=== PATIENT | female | born 1980 | race Caucasian/White ===

== ENCOUNTER 2024-10-09 01:02 | Emergency (ER) | payer MEDICAID, SELFPAY ==
[2024-10-09 01:03] VITALS: BP 109/72; PULSE 100; RESP 16; TEMP 36.6; O2SAT 97
--- OUTSIDE RECORDS SUMMARY | 2024-10-09 01:05 | XMS_ITS | Encounter Summary ---
Author Organization [facility] Address [address] [place] [address] Care Team Providers Care Concrete Crusher Loader Operator Name Role Phone Venkat Solis MD Primary Care Provider [phone] Encounter Details Date Type Department Care Team (Late st Contact Info) Description 01/14/2008 Outpatient Historical [facility] Er, Authorized P NO ADDRESS ON FILE Pancho Anglin MD [address] [facility] [place] [address] Social History Tobacco Use Types Packs/Day Years Used Date Smoking Tobacco: Never Assessed Comments Unknown Sex and Gender Information Value Date Recorded Sex Assigned at Female 04/24/2023 11:11 PM CDT Legal Sex Female 2:50 AM WORK STATION SUPPORT SPECIALIST Gender Identity Female 04/24/2023 11:11 PM CDT Sexual Orientation Straight 04/24/2023 11 :11 PM CDT documented as of this encounter Plan of Treatment Not on file documented as of this encounter Visit Diagnoses Not on filedocumented in this encounter Additional Health Concerns Infection Onset Date Last Indicated Resolved Time R/O COVID-19 02/19/2022 02/19/2022 02/19/2022 3:34 PM CDT R/O COVID-19 10/22/2022 10/22/2022 10/22/2022 5:43 PM WORK STATION SUPPORT SPECIALIST R/O COVID-19 08/02/2023 08/02/2023 08/02/2023 4:03 AM WORK STATION SUPPORT SPECIALIST R/O Respiratory 08/02/2023 08/02/2023 08/02/2023 1 :49 AM WORK STATION SUPPORT SPECIALIST R/O GI Pathogen 08/04/2023 08/04/2023 08/04/2023 7 :15 PM WORK STATION SUPPORT SPECIALIST documented as of this encounter Care Teams Concrete Crusher Loader Operator Relationship Specialty [place] [address] [address] PCP - General Family Practice 09/16/24 09/16/24 documented as of this encounter
--- OUTSIDE RECORDS SUMMARY | 2024-10-09 01:05 | XMS_ITS | Encounter Summary ---
Author Organization [facility] Address [address] [place] [address] Care Team Providers Care Nurse Transition Name Role Phone Venkat Solis MD Primary Care Provider [phone] Reason for Visit * Reason Onset Date Comments Paperwork 05/18/2024 Alana amado Encounter Details Date Type Department Care Team (Late st Contact Info) Description 05/18/2024 Telephone [facility] Family Medicine [place] Harpreet [address] [employer] [facility] [address] [place] [address] [place] [address] [place] [facility] [address] [place] [address] Paperwork ([employer] Arred[employer] Form) Social History Tobacco Use Types Packs/Day Years Used Date Smoking Tobacco: Never Smokeless Tobacco: Never Comments:Second hand smoke e xposure Alcohol Use Standard Drinks/Week Comments Not Currently 0 (1 standard drink = 0.6 oz pur e alcohol) social Feeling Safe Answer Date Recorded Within the last year, have y ou been afraid of your partner or ex-partner? No 03/09/2020 Within the last year, have y ou been humiliated or emotionally abused in other ways by your partner or ex-partner? No 03/09/2020 Within the last year, have y ou been kicked, hit, slapped, or otherwise physically hurt by your partner or ex-partner? No 03/09/2020 Sexually Abused Not on file 03/09/2020 Feeling Safe Answer Date Recorded Are you in a relationship wi th someone who hurts you emotionally and/or physically? No 04/12/2024 Food Insecurity Answer Date Recorded Social/Environmental Concerns No concerns Transportation Needs Answer Date Record ed Social/Environmental Concerns No concerns Housing Stability Answer Date Recorded Social/Environmental Concerns No concerns Utility Needs Answer Date Recorded Social/Environmental Concerns No concerns Comments No Sex and Gender Information Value Date Recorded Sex Assigned at Female 04/24/2023 11:11 PM CDT Legal Sex Female 2:50 AM SHAREPOINT ADMIN Gender Identity Female 04/24/2023 11:11 PM CDT Sexual Orientation Straight 04/24/2023 11 :11 PM CDT Occupation Industry Job Start Date Job End Date Not on file Not on file Not on file Not on file documented as of this encounter Miscellaneous Notes * Telephone Encounter - Wandy Hernandez - 05/18/2024 1:06 PM CDT Paperwork has been scanned into patient's chart and a copy placed in Dr Mai's folder documented in this encounter Plan of Treatment Not on file documented as of this encounter Visit Diagnoses Not on filedocumented in this encounter Care Teams Nurse Transition Relationship Specialty [place] [address] [phone] PCP - General Family Practice 09/16/24 09/16/24 documented as of this encounter
--- OUTSIDE RECORDS SUMMARY | 2024-10-09 01:05 | XMS_ITS | Encounter Summary ---
Author Organization [facility] Address [address] [place] [address] Care Team Providers Care Gatekeeper Name Role Phone Venkat Solis MD Primary Care Provider [phone] Encounter Details Date Type Department Care Team (Late st Contact Info) Description 05/18/2007 Outpatient Historical [facility] [place] [place] [id number] Er, Authorized P NO ADDRESS ON FILE Broken Tooth-Uncomplic (Primary Dx) Social History Tobacco Use Types Packs/Day Years Used Date Smoking Tobacco: Never Assessed Comments Unknown Sex and Gender Information Value Date Recorded Sex Assigned at Female 04/24/2023 11:11 PM CDT Legal Sex Female 2:50 AM PHARMACEUTICAL SALES REPRESENTATIVE Gender Identity Female 04/24/2023 11:11 PM CDT Sexual Orientation Straight 04/24/2023 11 :11 PM CDT documented as of this encounter Plan of Treatment Not on file documented as of this encounter Visit Diagnoses Diagnosis Open wound of tooth (broken) (fractured) (due to trauma), without mention of complication- Primary documented in this encounter Additional Health Concerns Infection Onset Date Last Indicated Resolved Time R/O COVID-19 02/19/2022 02/19/2022 02/19/2022 3:34 PM CDT R/O COVID-19 10/22/2022 10/22/2022 10/22/2022 5:43 PM PHARMACEUTICAL SALES REPRESENTATIVE R/O COVID-19 08/02/2023 08/02/2023 08/02/2023 4:03 AM PHARMACEUTICAL SALES REPRESENTATIVE R/O Respiratory 08/02/2023 08/02/2023 08/02/2023 1 :49 AM PHARMACEUTICAL SALES REPRESENTATIVE R/O GI Pathogen 08/04/2023 08/04/2023 08/04/2023 7 :15 PM PHARMACEUTICAL SALES REPRESENTATIVE documented as of this encounter Care Teams Gatekeeper Relationship Specialty [place] [address] [phone] PCP - General Family Practice 09/16/24 09/16/24 documented as of this encounter
--- OUTSIDE RECORDS SUMMARY | 2024-10-09 01:05 | XMS_ITS | Encounter Summary ---
Author Organization [facility] Address [address] [place] [address] Care Team Providers Care Storeroom Supervisor Name Role Phone Venkat Solis MD Primary Care Provider [phone] Reason for Visit * Reason Onset Date Comments Paperwork 08/27/2024 [facility] of Socia l Services for Medical Referral of Restricted Participant Encounter Details Date Type Department Care Team (Late st Contact Info) Description 08/27/2024 Telephone [facility] Medicine [facility] [address] [id number] [employer] [facility] [address] [place] [address] [place] [address] [place] [address] Paperwork ([facility] 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 No 08/26/2024 Food Insecurity Answer Date Recorded Social/Environmental Concerns No concerns Transportation Needs Answer Date Record ed Social/Environmental Concerns No concerns Housing Stability Answer Date Recorded Social/Environmental Concerns No concerns Utility Needs Answer Date Recorded Social/Environmental Concerns No concerns Comments No Sex and Gender Information Value Date Recorded Sex Assigned at Female 04/24/2023 11:11 PM CDT Legal Sex Female 2:50 AM BENCH MANAGER Gender Identity Female 04/24/2023 11:11 PM CDT Sexual Orientation Straight 04/24/2023 11 :11 PM CDT Occupation Industry Job Start Date Job End Date Not on file Not on file Not on file Not on file documented as of this encounter Miscellaneous Notes * Telephone Encounter - Wandy Hernandez - 08/27/2024 10:39 AM CST Paperwork has been scanned into patient's chart and a copy placed in Dr Mai's folder H MANAGER documented in this encounter Plan of Treatment Not on file documented as of this encounter Visit Diagnoses Not on filedocumented in this encounter Care Teams Storeroom Supervisor Relationship Specialty [place] [address] [phone] PCP - General Family Practice 09/16/24 09/16/24 documented as of this encounter
--- OUTSIDE RECORDS SUMMARY | 2024-10-09 01:05 | XMS_ITS | Encounter Summary ---
Author Organization [facility] Address [address] [place] [address] Care Team Providers Care Dog Boarder Name Role Phone Venkat Solis MD Primary Care Provider Encounter Details Date Type Department Care Team (Late st Contact Info) Description 05/22/2007 Outpatient Historical [facility] Pancho Anglin MD [address] [place] [address] Emergency Department [place], [place] [id number] Er, Authorized P NO ADDRESS ON FILE Periapical Abscess without Sinus (Primary Dx) Social History Tobacco Use Types Packs/Day Years Used Date Smoking Tobacco: Never Assessed Comments Unknown Sex and Gender Information Value Date Recorded Sex Assigned at Female 04/24/2023 11:11 PM CDT Legal Sex Female 2:50 AM SHIP/REC/DOC CONTROL Gender Identity Female 04/24/2023 11:11 PM CDT Sexual Orientation Straight 04/24/2023 11 :11 PM CDT documented as of this encounter Plan of Treatment Not on file documented as of this encounter Visit Diagnoses Diagnosis Periapical abscess without sinus- Primary documented in this encounter Additional Health Concerns Infection Onset Date Last Indicated Resolved Time R/O COVID-19 02/19/2022 02/19/2022 02/19/2022 3:34 PM CDT R/O COVID-19 10/22/2022 10/22/2022 10/22/2022 5:43 PM SHIP/REC/DOC CONTROL R/O COVID-19 08/02/2023 08/02/202308/0208/02/2023 4:03 AM SHIP/REC/DOC CONTROL R/O Respiratory 08/02/2023 08/02/2023 08/02/2023 1 :49 AM SHIP/REC/DOC CONTROL R/O GI Pathogen 08/04/2023 08/04/2023 08/04/2023 7 :15 PM SHIP/REC/DOC CONTROL documented as of this encounter Care Teams Dog Boarder Relationship Specialty [place] [address] [phone] PCP - General Family Practice 09/16/24 09/16/24 documented as of this encounter
--- OUTSIDE RECORDS SUMMARY | 2024-10-09 01:05 | XMS_ITS | Continuity of Care Document ---
Author Organization [facility] Address [address] [place] [address] Phone Care Team Providers Care Pure Pak Machine Operator Name Role Phone Heidy SERNA, Henry Unavailable Unavailabl e Allergies, Adverse Reactions, Alerts Substance Reaction Status Criticality TRAMADOL HCL Active No Information KETOROLAC TROMETHAMINE Active No In formation Medications Medication Instructions Dosage Effective Dates (start - stop) Status Comments omeprazole 40 mg capsule,delayed release take 1 capsule by oral route 2 times every day before a meal 40 MG - Active Prozac 40 mg capsule take 1 capsule by o ral route every day in the morning 40 MG - Active Lamictal 200 mg tablet take 1 tablet by oral route 2 times every day 200 MG - Active Xanax 1 mg tablet take 1 tablet by ora l route 2 times every day 1 MG - Active trazodone 100 mg tablet take 1 tablet by oral route every day after meals 100 MG - Active Advance Directives Directive Yes / No Effective Date File Name No Information Encounters Encounter Description Practice Location Reason(s) For Visit Diagnoses Date Provider Providers Copied on Encounter [facility], [address], [place], [place], [id number], tel:[phone] [facility] No Information 7 Heidy Figueroa. [address], [id number], [place]. tel:[phone] [facility], [address], [place], [place], [address], [place] tel:[phone] [facility] No Information 6 Olvin Sorensen. [address] [facility], [facility] [address], [place], [place], [id number]. tel:[phone] [facility], [address], [place], [place], [id number], [place] tel:[phone] [facility] Diffuse abdominal painAbnormal CT of the abdomen 5 Olvin Sorensen. [address] [facility], [address], [place], [place], [id number]. tel:[phone] Referring Provider: Karina Woods[address], [place], [address]. tel:[phone] Family History Family Member Type Diagnosis Age At Onset No Information Payers Payer name Insurance type Covered green party ID Authoriza tion(s) MEDICAID [facility] [id number] Social History Type Description Quantity Date Captured Comments Alcohol Use Details Unknown Caffeine Use Details Unknown Tobacco Use Status No Information Smoking Status No Information Sex Female Chief Complaint And Reason For Visit No Information Reason For Referral Reason For Referral No Information History Of Present Illness Encounter Date Complaint History Of Prese nt Illness No Information Functional Status Date Functional Assessmen t No Information Instructions Date Instruction Additional Infor mation No Information Assessments Type Assessment Date No Information Patient Care Teams Name Effective Dates (start - stop) Status Members No Information
--- OUTSIDE RECORDS SUMMARY | 2024-10-09 01:05 | XMS_ITS | Encounter Summary ---
Author Organization [facility] Address [address] [place] [address] Care Team Providers Care Dry Box Tender Name Role Phone Venkat Solis MD Primary Care Provider [phone] Encounter Details Date Type Department Care Team (Late st Contact Info) Description 12/17/2001 Outpatient Historical [facility] Omar Cárdenas MD Er, Authorized P NO ADDRESS ON FILE UNS ASTHMA WOSTATUS ASTHMATICUS (Primary Dx) Social History Tobacco Use Types Packs/Day Years Used Date Smoking Tobacco: Never Assessed Comments Unknown Sex and Gender Information Value Date Recorded Sex Assigned at Female 04/24/2023 11:11 PM CDT Legal Sex Female 2:50 AM ENROLLER Gender Identity Female 04/24/2023 11:11 PM CDT Sexual Orientation Straight 04/24/2023 11 :11 PM CDT documented as of this encounter Plan of Treatment Not on file documented as of this encounter Visit Diagnoses Diagnosis Unspecified asthma(493.90)- Primary Unspecified asthma documented in this encounter Additional Health Concerns Infection Onset Date Last Indicated Resolved Time R/O COVID-19 02/19/2022 02/19/2022 02/19/2022 3:34 PM CDT R/O COVID-19 10/22/2022 10/22/2022 10/22/2022 5:43 PM ENROLLER R/O COVID-19 08/02/2023 08/02/2023 08/02/2023 4:03 AM ENROLLER R/O Respiratory 08/02/2023 08/02/202308/02/2023 1 :49 AM ENROLLER R/O GI Pathogen 08/04/2023 08/04/2023 08/04/2023 7 :15 PM ENROLLER documented as of this encounter Care Teams Dry Box Tender Relationship Specialty [place] [address] [phone] PCP - General Family Practice 09/16/24 09/16/24 documented as of this encounter
--- OUTSIDE RECORDS SUMMARY | 2024-10-09 01:05 | XMS_ITS | Encounter Summary ---
Author Organization [facility] Address [address] [place] [address] Care Team Providers Care Strapper And Buffer Name Role Phone Venkat Solis MD Primary Care Provider [phone] Encounter Details Date Type Department Care Team (Late st Contact Info) Description 08/05/2007 Outpatient Historical [facility] Livan Gates, DO [address] [place] [address] Er, Authorized P NO ADDRESS ON FILE Bronchitis, not Specified as Acute or Chronic (Primary Dx) Social History Tobacco Use Types Packs/Day Years Used Date Smoking Tobacco: Never Assessed Comments Unknown Sex and Gender Information Value Date Recorded Sex Assigned at Female 04/24/2023 11:11 PM CDT Legal Sex Female 2:50 AM LEVEE SUPERINTENDENT Gender Identity Female 04/24/2023 11:11 PM CDT Sexual Orientation Straight 04/24/2023 11 :11 PM CDT documented as of this encounter Plan of Treatment Not on file documented as of this encounter Visit Diagnoses Diagnosis Bronchitis, not specified as acute or chronic- Primary documented in this encounter Additional Health Concerns Infection Onset Date Last Indicated Resolved Time R/O COVID-19 02/19/2022 02/19/2022 02/19/2022 3:34 PM CDT R/O COVID-19 10/22/2022 10/22/2022 10/22/2022 5:43 PM LEVEE SUPERINTENDENT R/O COVID-19 08/02/2023 08/02/2023 08/02/2023 4:03 AM LEVEE SUPERINTENDENT R/O Respiratory 08/02/2023 08/02/2023 08/02/2023 1 :49 AM LEVEE SUPERINTENDENT R/O GI Pathogen 08/04/2023 08/04/2023 08/04/2023 7 :15 PM LEVEE SUPERINTENDENT documented as of this encounter Care Teams Strapper And Buffer Relationship Specialty [place] [address] [address] PCP - General Family Practice 09/16/24 09/16/24 documented as of this encounter
--- OUTSIDE RECORDS SUMMARY | 2024-10-09 01:05 | XMS_ITS | Continuity of Care Document ---
Author Organization [facility] Address [address] [place] [address] Phone Care Team Providers Care Nurse'S Assistant Name Role Phone Unavailable Unavailable Unavailable Medications Medication Instructions Dosage Effective Dates (start - stop) Status Comments clindamycin 150 mg Cap take 1 capsule (150MG) by ORAL route every 6 hours 150 MG - Active Vicodin 5 mg-500 mg Tab take 1 tablet by ORAL route every 4 - 6 hours as needed for pain - Active Procedures Procedure Date Limit oral eval problem focused 010 Periapical first film Advance Directives Directive Yes / No Effective Date File Name No Information Encounters Encounter Description Practice Location Reason(s) For Visit Diagnoses Date Provider Providers Copied on Encounter [employer] [facility] , [address], [place], [place], [id number], [place] tel:[phone] [facility] No Information 3 No Information [facility] , [address], [place], [place], [id number], tel:[phone] [facility] No Information 0 No Information Family History Family Member Type Diagnosis Age At Onset No Information Payers Payer name Insurance type Covered green party ID Authordorindaa tibob(s) D Medicaid - [facility] [place] [id number] Social History Type Description Quantity Date Captured Comments Sex Female Smoking Status No Information Chief Complaint And Reason For Visit No [...]
--- OUTSIDE RECORDS SUMMARY | 2024-10-09 01:05 | XMS_ITS | Encounter Summary ---
Author Organization [facility] Address [address] [place] [address] Care Team Providers Care Towboat Captain Name Role Phone Venkat Solis MD Primary Care Provider Encounter Details Date Type Department Care Team (Late st Contact Info) Description 12/25/2001 Outpatient Historical [facility] Er, Authorized P NO ADDRESS ON FILE ACUTE PHARYNGITIS (Primary Dx) Social History Tobacco Use Types Packs/Day Years Used Date Smoking Tobacco: Never Assessed Comments Unknown Sex and Gender Information Value Date Recorded Sex Assigned at Female 04/24/2023 11:11 PM CDT Legal Sex Female 2:50 AM FOOD ASSEMBLER KITCHEN Gender Identity Female 04/24/2023 11:11 PM CDT Sexual Orientation Straight 04/24/2023 11 :11 PM CDT documented as of this encounter Plan of Treatment Not on file documented as of this encounter Visit Diagnoses Diagnosis Acute pharyngitis- Primary documented in this encounter Additional Health Concerns Infection Onset Date Last Indicated Resolved Time R/O COVID-19 02/19/2022 02/19/2022 02/19/2022 3:34 PM CDT R/O COVID-19 10/22/2022 10/22/2022 10/22/2022 5:43 PM FOOD ASSEMBLER KITCHEN R/O COVID-19 08/02/2023 08/02/2023 08/02/2023 4:03 AM FOOD ASSEMBLER KITCHEN R/O Respiratory 08/02/2023 08/02/2023 08/02/2023 1 :49 AM FOOD ASSEMBLER KITCHEN R/O GI Pathogen 08/04/2023 08/04/2023 08/04/2023 7 :15 PM FOOD ASSEMBLER KITCHEN documented as of this encounter Care Teams Towboat Captain Relationship Specialty [place] [address] [phone] PCP - General Family Practice 09/16/24 09/16/24 documented as of this encounter
--- OUTSIDE RECORDS SUMMARY | 2024-10-09 01:05 | XMS_ITS | Clinical Summary ---
Author Organization [employer] [facility] Address [address] [place] [address] [place] [address] Phone Care Team Providers Care Food Service Hotel Runner Name Role Phone Unavailable Primary Care Provider Unavailabl e Allergies Active Allergy Reactions Criticality Noted Date Comments Ketorolac Itching Low 04/16/2010 Patient is able to tolerate naproxen Morphine Itching Low 11/23/2022 Nsaids (Non-Steroidal Anti-Inflammatory Drug) Nausea and Vomiting,Other (See Comments) Low 10/27/2014 x Penicillins Hives,Shortness of Breath/Wheezing High 11/08/2014 Yeast infection Tramadol Itching Low 12/30/2008 Watermelon Swelling Medium 08/03/2009 watermelon Medications escitalopram oxalate (LEXAPRO) 10 mg tablet Take 15 mg by mouth daily. Active valACYclovir (VALTREX) 500 mg tablet Take 500 mg by mouth 2 times daily. 4 Active busPIRone (BUSPAR) 5 mg tablet Take 1 Tablet by mouth 2 times daily. 4 Active methocarbamoL (ROBAXIN) 500 mg tablet Take 1 Tablet (500 mg) by mouth 4 times daily as needed for Spasm. 30 Tablet 4 Active gabapentin (NEURONTIN) 300 mg capsule Take 1 Capsule (300 mg) by mouth 3 times daily. 30 Capsule 4 Active oxyCODONE-acetamin ophen (PERCOCET) 5-325 mg tabletIndications: Strain of neck muscle, initial encounter,Lumbar radiculopathy Take 1 Tablet by mouth every 4 hours as needed for Pain. Max Daily Amount: 6 Tablets 20 Tablet 4 Active predniSONE (DELTASONE) 10 mg tablet 40 mg po daily for 5 days 20 Tablet 4 Active Active Problems Problem Noted Date Diagnosed Date Chronic use of benzodiazepine for therapeutic pu rpose 06/16/2024 Continuous use of opioids 06/16/2024 Encounter for family educati on about Adverse Childhood Experience questionnaire score 06/16/2024 Chronic back pain 08/04/2023 Back spasm 06/24/2023 Herpes 04/04/2023 Bipolar 1 disorder 04/04/2023 Uncomplicated alcohol dependence 02/22/2023 Dental decay 02/22/2023 Gingivitis 02/22/2023 Left foot drop 11/20/2021 Overview (12/27/2023): Last Assessment & Plan: Left foot drop is noted on inspection of her gait. This is likely a sequela of her known cerebral palsy. I have referred her today to neurologist, Dr. Sellers. She would benefit for ordering of an AFO brace to help prevent falls with walking. Last Assessment & Plan: Left foot drop is noted on inspection of her gait. This is likely a sequela of her known cerebral palsy. I have referred her today to neurologist, Dr. Sellers. She would benefit for ordering of an AFO brace to help prevent falls with walking. Bipolar I disorder 03/09/2021 Overview (06/26/2022): Last Assessment & Plan: Accurate and up-to-date medication list is shown in her note. She follows with psychiatrist, Dr. Perkins, regularly. Last Assessment & Plan: Accurate and up-to-date medication list is shown in her note. She follows with psychiatrist, Dr. Perkins, regularly. Tooth ache 10/30/2017 Fibrocystic breast changes of both breasts 05/21 Dental caries 08/20/2015 S/P hysterectomy 11/08/2014 Fractured tooth 03/18/2014 Drug-seeking behavior 04/01/2012 Overview (06/06/2015): In ED 01/29/15 for dental pain. Discussed with [facility], already has had 3 narcotic and 3 sedative scripts this month from all different providers. 04/2015 - released by PCP, Dr. Lisa Washington for drug seeking behavior, noncompliance and multiple missed appointments. Cerebral palsy 12/23/2010 Resolved Problems Problem Noted Date Diagnosed Date Resolved Date Abdominal pain 08/05/2023 06/16/2024 Leukocytosis (leucocytosis) 08/04/2023 06/16/2024 Viral upper respiratory infection 08/04/2023 06/16/2024 Subacute cough 08/04/2023 06/16/2024 Dental abscess 04/13/2023 06/16/2024 Acute anxiety 04/04/2023 06/16/2024 Abdominal pain in female patient 04/04/2023 06/16/2024 Small bowel mass 04/01/2022 12/27/2023 Overview (12/27/2023): Last Assessment & Plan: I discussed with patient that the radiologist who read the CT scan in the [facility] system felt that the mass was consistent with cancer. But cancer cannot be diagnosed without a tissue biopsy. I am referring her to GI physician, Dr. Park, for further evaluation. If he is able to visualize the lesion endoscopically, then he will do so. If not, she will require referral to a colorectal surgeon to have the lesion biopsied. Patient expressed understanding of these recommendations. She asked me to discuss all of this with her boyfriend (who was also at her home) because she stated that he had not believed her when she told him that she might have cancer. I did discuss these same recommendations and assessments with her boyfriend. Last Assessment & Plan: I discussed with patient that the radiologist who read the CT scan in the [facility] system felt that the mass was consistent with cancer. But cancer cannot be diagnosed without a tissue biopsy. I am referring her to GI physician, Dr. Park, for further evaluation. If he is able to visualize the lesion endoscopically, then he will do so. If not, she will require referral to a colorectal surgeon to have the lesion biopsied. Patient expressed understanding of these recommendations. She asked me to discuss all of this with her boyfriend (who was also at her home) because she stated that he had not believed her when she told him that she might have cancer. I did discuss these same recommendations and assessments with her boyfriend. Right lower quadrant abdominal pain 04/01/2022 06/16/2024 Overview (12/27/2023): Last Assessment & Plan: Possibly due to mass in small bowel. Referral to GI physician, Dr. Crews, is made today. She cannot take NSAIDs for pain relief because she has had a history of upper GI bleed in the past. Prescription for #12 Squires tablets were sent to her pharmacy today to take as needed. The dangers of taking narcotic pain medications were discussed with patient today. Those include risk of overdose, addiction, constipation and over-sedation. Last Assessment & Plan: Possibly due to mass in small bowel. Referral to GI physician, Dr. Crews, is made today. She cannot take NSAIDs for pain relief because she has had a history of upper GI bleed in the past. Prescription for #12 Squires tablets were sent to her pharmacy today to take as needed. The dangers of taking narcotic pain medications were discussed with patient today. Those include risk of overdose, addiction, constipation and over-sedation. Fall 02/01/2019 06/16/2024 Sprain of left ankle 02/01/2019 10/08/[address] of the abdomen 08/18/2018 1 Transaminitis 08/18/2018 06/16/2024 Epigastric abdominal pain 08/18/2018 Gastritis 01/04/2017 06/16/2024 Generalized abdominal pain 11/25/2016 1 Breast pain 05/21/2016 06/16/2024 Depression 01/04/2012 06/16/2024 Drug-seeking behavior 2022 Encounters Date Type Department Care Team Description 09/30/2024 [facility] Clinical Support [address] [facility] [place] [address] Coni Asher, AMRITA Question 09/21/2024 2:55 PM AUTOMOBILE BRAKE BONDER - 09/21/2024 5:51 PM [facility] Emergency Department [id number] [place] [address] Pain of left hip (Primary Dx) Discharge Disposition: Home or Self Care 09/17/2024 [facility] [address] [place] [address] Eliud Mai II, DO Paperwork (MDSS-Medical Referral of Restricted Participant(09-16-24) ) 09/08/2024 [facility] [address] [place] [address] Eliud Mai II, DO Illness 09/06/2024 2:02 PM AUTOMOBILE BRAKE BONDER - 09/06/2024 2:32 PM [facility] Emergency Department [address] [place] [phone] Other chronic pain (Primary Dx); Drug-seeking behavior Discharge Disposition: Home or Self Care 08/27/2024 [facility] [address] [place] [address] Eliud Mai II, DO Paperwork (Co Dept of Lime Kiln Operator for Medical Referral of Restricted Participant) 08/26/2024 5:49 AM AUTOMOBILE BRAKE BONDER - 08/26/2024 6:42 AM [facility] Emergency Department [address] [place] [address] Lorelei Samano MD Chronic bilateral low back pain with bilateral sciatica (Primary Dx) Discharge Disposition: Home or Self Care 08/26/2024 Travel 08/19/2024 8:39 AM AUTOMOBILE BRAKE BONDER - 08/19/2024 9:36 AM [facility] Emergency Department [address] [place] [phone] Discharge Disposition: Left without being seen 08/19/2024 4:42 AM AUTOMOBILE BRAKE BONDER - 08/19/2024 7:37 AM [facility] Emergency Department [address] [place] [phone] Pancho Nunes MD Lumbar pain (Primary Dx); Pain, dental Discharge Disposition: Home or Self Care 08/14/2024 12:07 AM AUTOMOBILE BRAKE BONDER - 08/14/2024 2:01 AM [facility] Emergency Department [address] [place] [address] Loi Almaguer DO Strain of neck muscle, initial encounter (Primary Dx); Lumbar radiculopathy Discharge Disposition: Home or Self Care 08/13/2024 Travel 08/11/2024 External Device Data ST[facility] ABSTRACTION Provider, Abstract 07/28/2024 6:48 PM AUTOMOBILE BRAKE BONDER - 07/28/2024 8:16 PM [facility] Emergency Department [address] [place] [address] Renaldo Chapman MD Anxiety state (Primary Dx) Discharge Disposition: Home or Self Care 07/28/2024 External Device Data STL ABSTRACTION Provider, Abstract 07/28/2024 Telephone [facility] Medicine [place] [address] [place] [address] Eliud Mai II, DO Paperwork (Medical Referral of Restricted Participant) 07/26/2024 9:27 PM AUTOMOBILE BRAKE BONDER - 07/26/2024 11:21 PM [facility] Emergency Department [address] [place] [address] Sonia Rod MD Chronic dental pain (Primary Dx); Gingivitis; Dental caries Discharge Disposition: Home or Self Care 07/25/2024 6:11 AM AUTOMOBILE BRAKE BONDER - 07/25/2024 6:49 AM [facility] Emergency Department [address] [place] [address] Kirit Agustin MD Anxiety (Primary Dx) Discharge Disposition: Home or Self Care 07/25/2024 3:14 AM AUTOMOBILE BRAKE BONDER - 07/25/2024 3:45 AM [facility] Emergency Department [address] [place] [address] Williams Angel DO M[place] (Primary Dx) Discharge Disposition: Home or Self Care 07/25/2024 12:34 AM AUTOMOBILE BRAKE BONDER - 07/25/2024 1:07 AM [facility] Emergency Department [address] [place] [address] Williams Angel DO Chronic low back pain, unspecified back pain laterality, unspecified whether sciatica present (Primary Dx) Discharge Disposition: Home or Self Care 07/22/2024 6:41 PM AUTOMOBILE BRAKE BONDER - 07/22/2024 7:54 PM [facility] Emergency Department [address] [place] [address] Chronic dental pain (Primary Dx) Discharge Disposition: Home or Self Care 07/22/2024 Travel 07/21/2024 External Device Data STL ABSTRACTION Provider, Abstract 07/13/2024 External Device Data ST[facility] ABSTRACTION Provider, Abstract from Last 3 Months Immunizations Immunization Administration Dates Next Due (ADACEL/BOOSTRIX)(10 YR UP) TDAP VACCINE, 0.5ML, IM 09/26/2016,09/26/2016 (PNEUMOVAX 23)(50 YRS UP) PN EUMOCOCCAL POLYSACCHARIDE (PPV23) 0.5 ML, IM 09/03/2014 (TDVAX)(7 YRS UP) TETANUS AN D DIPHTHERIA TOXOIDS, ADSORBED (2 LF OF TETANUS TOXOID AND 2 LF OF DIPHTHERIA TOXOID), 0.5ML (PF), IM 06/02/2006 INFLUENZA VACCINE QUADRIVALE NT 6 MOS UP CELL DERIVED PF IM 05/29/2022,05/07/2017 INFLUENZA VACCINE QUADRIVALE NT 6 MOS UP PF IM 06/12/2022,05/29/2022,09/23/2018 Influenza Seasonal Unspecifi ed Formulation IM 11/12/2023,06/12/2022,09/23/2018 Influenza Seasonal Unspecifi ed Formulation PF IM 05/29/2022 Influenza Vaccine 18+ C.derived Pf Im 05/29/2022 ,05/07/2017 PNEUMOVAX (PPSV23) pneumococ laci polysaccharide 23-valent Vaccine 09/03/2014 Td(adult) Unspecified Formulation 06/02/2006 Family History Medical History Relation Name Comments Asthma Daughter Colleen Depression Daughter Colleen Thyroid Disease Daughter Colleen High Cholesterol Father Nico Hypertension Father Nico High Cholesterol Mother Paty Hypertension Mother Paty Relation Name Status Comments Daughter Colleen Father Nico Alive Mother Paty Alive Social History Tobacco Use Types Packs/Day Years Used Date Smoking Tobacco: Never Smokeless Tobacco: Never Tobacco Cessation:Counseling Given: Not Answered Comments:Second hand smoke exposure Alcohol Use Standard Drinks/Week Comments Not Currently [...] PM CDT Legal Sex Female 2:50 AM AUTOMOBILE BRAKE BONDER Gender Identity Female 04/24/2023 11:11 PM CDT Sexual Orientation Straight 04/24/2023 11 :11 PM CDT Occupation Industry Job Start Date Job End Date Not on file Not on file Not on file Not on file Last Filed Vital Signs Vital Sign Reading Time Taken Comments Blood Pressure 100/74 09/21/2024 3:50 PM AUTOMOBILE BRAKE BONDER Pulse 98 09/21/2024 3:50 PM AUTOMOBILE BRAKE BONDER Temperature 36.7 ??C (98 ??F) 09/21/2024 3:50 PM AUTOMOBILE BRAKE BONDER Respiratory Rate 16 09/21/2024 3:50 PM AUTOMOBILE BRAKE BONDER Oxygen Saturation 98% 09/21/2024 3:50 PM AUTOMOBILE BRAKE BONDER Inhaled Oxygen Concentration - - Weight 62.1 kg (137 lb) 08/26/2024 2:15 AM AUTOMOBILE BRAKE BONDER Height 170.2 cm (5' 7 ) 08/26/2024 2:15 AM AUTOMOBILE BRAKE BONDER Body Mass Index 21.46 08/26/2024 2:15 AM AUTOMOBILE BRAKE BONDER Plan of Treatment Health Maintenance Due Date Last Done Comments HEPATITIS B VACCINES (1 of 3 - 19+ 3-dose series) 2001 CERVICAL CANCER SCREENING 2012 BREAST CANCER SCREENING 2022 INFLUENZA VACCINE (#1) 2024 , 06/12/2022, 06/12/2022, Additional history exists COVID-19 Vaccine ( season) 2024 09/16/2023, 09/22/2021, 01/19/2021, Additional history exists DTAP/TDAP/TD VACCINES (3 - Td or Tdap) 09/26/2026 09/26/2016, 09/26/2016, 06/02/2006, Additional history exists HPV VACCINES Aged Out No longer eligi ble based on patient's age to complete this topic Medical Devices Implanted Type Area Supervisor Frame Sample And Pattern Device Identifier Shelf Expiration Date Model / Serial / Lot Clip Natalia Hinson [id number] - Csc - [id number] Implanted:Qty: 1 on 01/03/2024 by Mirella Tom MD at [facility] Clip N/A: Abdomen TELEFLEX- WECK CLOSURE SYS 08/11/2028 [id number] / / [id number] Procedures Procedure Name Priority Date/Time Associated Diagnosis Comments XR HIP 2 OR 3 VIEWS LT Stat 09/21/2024 1:25 PM AUTOMOBILE BRAKE BONDER XR LUMBAR SPINE 2 OR 3 VW Stat 08/19/2024 4:48 AM AUTOMOBILE BRAKE BONDER from Last 3 Months Results * XR HIP 2 OR 3 VIEWS LT (09/21/2024 1:25 PM AUTOMOBILE BRAKE BONDER) Anatomical Region Laterality Modality Lower Extremity Left Computed Radiogr aphy 09/21/2024 1:25 PM AUTOMOBILE BRAKE BONDER Impressions 09/21/2024 1:29 PM AUTOMOBILE BRAKE BONDER IMPRESSION: 1. No osseous abnormality. DICTATION LOCATION: [address] Narrative 09/21/2024 1:29 PM AUTOMOBILE BRAKE BONDER XR HIP 2 OR 3 VIEWS LT DATE: 09/21/2024 1:25 PM HISTORY: Injury. FINDINGS: The osseous structures of the pelvis are intact. The femoral heads well-seated in the acetabulum. The joint spacing is normal. Procedure Note Jonathan Arreguin MD - 09/21/2024 XR HIP 2 OR 3 VIEWS LT DATE: 09/21/2024 1:25 PM HISTORY: Injury. FINDINGS: The osseous structures of the pelvis are intact. The femoral heads well-seated in the acetabulum. The joint spacing is normal. IMPRESSION: 1. No osseous abnormality. DICTATION LOCATION: [address] us Protocol [facility] MD DIAGNOSTIC IMAGING OR DERABLES Final Result * XR LUMBAR SPINE 2 OR 3 VW (08/19/2024 4:48 AM AUTOMOBILE BRAKE BONDER) Anatomical Region Laterality Modality Spine Computed Radiogr aphy 08/19/2024 4:49 AM AUTOMOBILE BRAKE BONDER Impressions 08/19/2024 7:29 AM AUTOMOBILE BRAKE BONDER IMPRESSION: 1. No acute fracture identified. DICTATION LOCATION: [address] Narrative 08/19/2024 7:29 AM AUTOMOBILE BRAKE BONDER EXAMINATION: XR LUMBAR SPINE 2 OR 3 VW DATE: 08/19/2024 4:48 AM HISTORY: Low Back Pain; See Reason for Exam COMPARISON: 10/17/2020 ?? FINDINGS: The vertebral bodies are normally aligned. There is no fracture or compression deformity. The intervertebral disc spaces are maintained. There is mild facet osteoarthritis. Procedure Note Pawan Fortune MD - 08/19/2024 EXAMINATION: XR LUMBAR SPINE 2 OR 3 VW DATE: 08/19/2024 4:48 AM HISTORY: Low Back Pain; See Reason for Exam COMPARISON: 10/17/2020 FINDINGS: The vertebral bodies are normally aligned. There is no fracture or compression deformity. The intervertebral disc spaces are maintained. There is mild facet osteoarthritis. IMPRESSION: 1. No acute fracture identified. DICTATION LOCATION: Location [address] [place] [address] Pancho Nunes MD DIAGNOSTIC IMAGING ORDERABLE S Final Result from Last [address] [place] [address] [place] [address] RX INFOCROSSING Medicaid RX KING PLANS (INTERNAL) [facility] RX KING PLANS (INTERNAL) [facility] RX [employer] [place] Subscriber Plan / Payer (Ef fective 2021-Present) Name:Danay Ann Relation to Subscriber:Self Name:Danay Ann Payer ID:Not on file Group ID:Not on file Type:Medicaid Address: [address] [facility] [place] [address] Advance Directives For more information, please contact: [phone] * Full Code (Latest Code Status on File) Date Activated Date Inactivated Comments 01/03/2024 2:11 PM 01/03/2024 5:26 PM * Full Code Date Activated Date Inactivated Comments 08/04/2023 11:17 AM 08/05/2023 1:38 PM * Full Code Date Activated Date Inactivated Comments 08/18/2018 8:17 AM 08/19/2018 4:23 PM
--- OUTSIDE RECORDS SUMMARY | 2024-10-09 01:05 | XMS_ITS | Encounter Summary ---
Author Organization [facility] Address [address] [place] [address] Care Team Providers Care Heat Plant Specialist Name Role Phone Venkat Solis MD Primary Care Provider [phone] Encounter Details Date Type Department Care Team (Late st Contact Info) Description 05/29/2008 Outpatient Historical [facility] [place], Authorized P NO ADDRESS ON FILE Evan Chen MD [facility] [place] [address] Unspecified Dental Caries; Unspecified Disease of the Jaws; Other Acute Pain Social History Tobacco Use Types Packs/Day Years Used Date Smoking Tobacco: Never Assessed Comments Unknown Sex and Gender Information Value Date Recorded Sex Assigned at Female 04/24/2023 11:11 PM CDT Legal Sex Female 2:50 AM MIXED LIVESTOCK FARMER Gender Identity Female 04/24/2023 11:11 PM CDT Sexual Orientation Straight 04/24/2023 11 :11 PM CDT documented as of this encounter Plan of Treatment Not on file documented as of this encounter Visit Diagnoses Diagnosis Unspecified dental caries Unspecified disease of the jaws Other acute pain documented in this encounter Additional Health Concerns Infection Onset Date Last Indicated Resolved Time R/O COVID-19 02/19/2022 02/19/2022 02/19/2022 3:34 PM CDT R/O COVID-19 10/22/2022 10/22/2022 10/22/2022 5:43 PM MIXED LIVESTOCK FARMER R/O COVID-19 08/02/2023 08/02/2023 08/02/2023 4:03 AM MIXED LIVESTOCK FARMER R/O Respiratory 08/02/2023 08/02/2023 08/02/2023 1 :49 AM MIXED LIVESTOCK FARMER R/O GI Pathogen 08/04/2023 08/04/2023 08/04/2023 7 :15 PM MIXED LIVESTOCK FARMER documented as of this encounter Care Teams Heat Plant Specialist Relationship Specialty [place] [id number] [address] PCP - General Family Practice 09/16/24 09/16/24 documented as of this encounter
--- OUTSIDE RECORDS SUMMARY | 2024-10-09 01:05 | XMS_ITS | Encounter Summary ---
Author Organization [facility] Address [address] [place] [address] Care Team Providers Care Double Reamer Operator Name Role Phone Venkat Solis MD Primary Care Provider [phone] Encounter Details Date Type Department Care Team (Late st Contact Info) Description 01/06/2009 Outpatient Historical [facility] [place] [address] [place] [address] Social History Tobacco Use Types Packs/Day Years Used Date Smoking Tobacco: Never Assessed Comments Unknown Sex and Gender Information Value Date Recorded Sex Assigned at Female 04/24/2023 11:11 PM CDT Legal Sex Female 2:50 AM DESIGN CHIEF Gender Identity Female 04/24/2023 11:11 PM CDT Sexual Orientation Straight 04/24/2023 11 :11 PM CDT documented as of this encounter Plan of Treatment Not on file documented as of this encounter Procedures Procedure Name Priority Date/Time Associated Diagnosis Comments XR CHEST PA AND LATERAL 2 VW Routine 01/06/2009 4:18 PM CDT documented in this encounter Results * XR CHEST PA AND LATERAL (01/06/2009 4:18 PM CDT) Anatomical Region Laterality Modality Chest Other 01/06/2009 4:18 PM CDT Narrative 01/07/2009 8:01 AM CDT ? [facility] ? [address] ?[place], [place] ??[address] ?Admit Date: 01/06/2009 ?TERRAZAS, DANAY M ?Sex: F ?Admit Prov: MAJIDI, BEHRAD ? Date: 1980 ?Primary Care Prov: PCP, UNKNOWN ?CMRN: [id number] ?Room: UCCP-A ? SSN: [id number] ? IMAGING SERVICES ?Ordering Prov: N/A ? Accession Number: [id number] ?Interpretation ? PA AND LATERAL CHEST X-RAY, 01/06/09 ? History: Cough. ? Findings: The lung de la fuente are clear and well aerated, without significant ? infiltrate. There is no pneumothorax or pleural effusion. The heart size is ? normal. ? IMPRESSION: ? No acute disease. ? . ? Dictated by: ??COLLEEN KILLIAN ?01/06/2009 16:38 ? Electronically signed by: ??COLLEEN KILLIAN ?01/07/2009 07:59 ? Transcribed: ??01/06/2009 18:13 ?LE Procedure Note Colleen Killian MD - 01/07/[address] [address] Admit Date: 01/06/2009 NINI December Sex: F Admit Prov: DARRICK BAEZ Date: 1980 Primary Care Prov: PCP, UNKNOWN CMRN: [id number] Room: [facility] SSN: [id number] IMAGING SERVICES Ordering Prov: N/A Interpretation PA AND LATERAL CHEST X-RAY, 01/06/09 History: Cough. Findings: The lung de la fuente are clear and well aerated, withoutsignificant infiltrate. There is no pneumothorax or pleural effusion. The heartsize is normal. IMPRESSION: No acute disease. . Dictated by: COLLEEN KILLIAN 01/06/2009 16:38 Electronically signed by: COLLEEN KILLIAN 01/07/2009 07:59 Transcribed: 01/06/2009 18:13 LE Darrick Baez MD DIAGNOSTIC IMAGING ORDERABLES F inal Result documented in this encounter Visit Diagnoses Not on filedocumented in this encounter Additional Health Concerns Infection Onset Date Last Indicated Resolved Time R/O COVID-19 02/19/2022 02/19/2022 02/19/2022 3:34 PM CDT R/O COVID-19 10/22/2022 10/22/2022 10/22/2022 5:43 PM DESIGN CHIEF R/O COVID-19 08/02/2023 08/02/2023 08/02/2023 4:03 AM DESIGN CHIEF R/O Respiratory 08/02/2023 08/02/2023 08/02/2023 1 :49 AM DESIGN CHIEF R/O GI Pathogen 08/04/2023 08/04/2023 08/04/2023 7 :15 PM DESIGN CHIEF documented as of this encounter Care Teams Double Reamer Operator Relationship Specialty [place] [id number] [address] PCP - General Family Practice 09/16/24 09/16/24 documented as of this encounter
--- OUTSIDE RECORDS SUMMARY | 2024-10-09 01:05 | XMS_ITS | Encounter Summary ---
Author Organization [facility] Address [address] [place] [address] Care Team Providers Care Health Benefits Specialist Name Role Phone Venkat Solis MD Primary Care Provider [phone] Encounter Details Date Type Department Care Team (Late st Contact Info) Description 10/12/2007 Outpatient Historical [facility] Er, Authorized P NO ADDRESS ON FILE Livan Gates, [address] [place] [address] Social History Tobacco Use Types Packs/Day Years Used Date Smoking Tobacco: Never Assessed Comments Unknown Sex and Gender Information Value Date Recorded Sex Assigned at Female 04/24/2023 11:11 PM CDT Legal Sex Female 2:50 AM WEB PRESS OPERATOR ASSISTANT Gender Identity Female 04/24/2023 11:11 PM CDT [...] R/O COVID-19 10/22/2022 10/22/2022 10/22/2022 5:43 PM WEB PRESS OPERATOR ASSISTANT R/O COVID-19 08/02/2023 08/02/2023 08/02/2023 4:03 AM WEB PRESS OPERATOR ASSISTANT R/O Respiratory 08/02/2023 08/02/2023 08/02/2023 1 :49 AM WEB PRESS OPERATOR ASSISTANT R/O GI Pathogen 08/04/2023 08/04/2023 08/04/2023 7 :15 PM WEB PRESS OPERATOR ASSISTANT documented as of this encounter Care Teams Health Benefits Specialist Relationship Specialty [place] [address] [address] PCP - General Family Practice 09/16/24 09/16/24 documented as of this encounter
--- OUTSIDE RECORDS SUMMARY | 2024-10-09 01:05 | XMS_ITS | Continuity of Care Document ---
Author Organization [facility] Address [address] [place] [address] Phone Care Team Providers Care Musical Instrument Maker Name Role Phone Diana Godfrey Unavailable Unavailable Allergies, Adverse Reactions, Alerts Substance Reaction Status Criticality watermelon Active No Information Medications Medication Instructions Dosage Effective Dates (start - stop) Status Comments ProAir HFA 90 mcg/actuation aerosol inhaler inhale 2 puff by inhalation route every 4 - 6 hours as needed - Active loratadine 10 mg tablet take 1 tablet by oral route every day 10 MG - Active furosemide 20 mg tablet take 1 tablet by oral route every day 20 MG - Active lamotrigine 100 mg tablet take 1 tablet by oral route 2 times every day - Active omeprazole 20 mg tablet,delayed release take 1 Tablet by Oral route once 1 Tablet - Active fluoxetine 40 mg capsule take 1 capsule by oral route every day in the morning 40 MG - Active diphenhydramine 25 mg capsule take 1 - 2 Capsule by oral route every 4-6 hrs as needed - Active ibuprofen 200 mg tablet take 1-2 tablet by oral route every 4-6 hours as needed with food - Active Suboxone 2 mg-0.[address] 1 film by sublingual route 4 times every day allow to dissolve slowly in mouth without chewing or swallowing 1 film - Active trazodone 50 mg tablet take 3 tablet by oral route every evening 150 MG - Active Procedures Procedure Date OFFICE/OUTPATIENT VISIT, NEW Advance Directives Directive Yes / No Effective Date File Name No Information Encounters Encounter Description Practice Location Reason(s) For Visit Diagnoses Date Provider Providers Copied on Encounter [facility], [address] [place] [address], [address], [place] tel:[phone] *[facility] [place] [facility] [place] Information [address] [place], [address], [place]. tel:[phone] OFFICE/OUTPAT IENT VISIT, [facility], [address] [place], [address], tel:[phone] *[facility] [place] [facility] [place] swelling (chief complaint) asthma (chief complaint) Body mass index (BMI) 26.0-26.9, adultDietary counseling and surveillancePedal edemaNon-seasonal allergic rhinitis due to other allergic triggerMild intermittent asthma without complication [address] [place], [address], [place]. tel:[phone] Family History Family Member Type Diagnosis Age At Onset Mother Problem (finding) hypertension Payers Payer name Insurance type Covered republican ID Authoriza tion(s) No Information Social History Type Description Quantity Date Captured Comments Alcohol Use Details Unknown Caffeine Use Details Unknown Tobacco Use Status No Information Smoking Status No Information Sex Female Chief Complaint And Reason For Visit No Information Reason For Referral Reason For Referral No Information Plan Of Treatment Date Type Action Status Goal Dietary management education , guidance, and counseling completed Goal Dietary management education , guidance, and counseling completed History Of Present Illness Encounter Date Complaint History Of Prese nt Illness swelling The severity is moderate and has worsened. The patient has swelling in the bilateral leg. The swelling is aggravated by standing and walking. Interventions the patient has tried have not provided any relief. The swelling is associated with decreased mobility, dyspnea, fatigue, headache, numbness and weight gain. The patient denies any appetite change, bleeding, blistering, bruising, chest pain, generalized weakness, myalgia, rash, skin discoloration and warmth. asthma The initial visi t date was 04/08/2019. The symptoms have worsened. Aggravating factors include change in weather, environmental allergens, exercise, smoke, stress and strong emotion. Symptom relief is noted with beta-agonist inhaler. Associated symptoms include dry cough, dyspnea with moderate exercise, post nasal drainage and sinusitis. Pertinent negatives include awakening with cough, awakening with dyspnea, awakening with wheeze, dyspnea at rest, dyspnea with intense exercise, excessive sputum, hemoptysis, hoarseness, irregular heartbeat/palpitations, mucus plug production, oral thrush, pleuritic pain, productive cough, reflux, seasonal rhinitis symptoms, stridor, tremor after inhaler use and wheezing. Functional Status Date Functional Assessmen t No Information Instructions Date Instruction Additional Infor mation You may use nasal sa line as often as you need. If you use otc afrin or generic nasal decongestant, do NOT use if for longer than three days in a row as it will cause rebound congestion and worsen your symptoms. Pt voiced understanding of how to properly use the nasal spray. If the doctor wrote a prescription for sudafed containing medication, dDo not share this medication. It may cause agitation or insomnia. Related to Non-seasonal allergic rhinitis due to other allergic trigger avoid asthma trigger s. use spacer/aerochamber with inhaler to optimize inhalation of the medication. Avoid cigarette smoke. Related to Mild intermittent asthma without complication decrease salt intake , elevate feet/legs/hands throughout the day. take the diuretic in the morning to avoid awakening at night to void. if you develop leg cramps call the office, you may need to take supplemental potassium Related to Pedal edema patient was advised to exercise at least 30minutes three times a week, to eat a diet high in fiber, low in fat and drink at least 64 ounces of water daily.discussed weight loss goals ie 1 pound per week for total 50+ wt loss in a year. decrease portion size, decrease carbohydrates. download [employer] to [employer] phone and log foods. start by decreasing caloric intake by 10% for the first month and gradually decrease. Do not go below 1200 calories per day. Related to Body mass index (BMI) 26.0-26.9, adult Dietary management e ducation, guidance, and counseling Related to Body mass index (BMI) 26.0-26.9, adult Dietary management e ducation, guidance, and counseling Related to Dietary counseling and surveillance Assessments Type Assessment Date No Information Patient Care Teams Name Effective Dates (start - stop) Status Members No Information
--- OUTSIDE RECORDS SUMMARY | 2024-10-09 01:05 | XMS_ITS | Encounter Summary ---
Author Organization [facility] Address [address] [place] [address] Care Team Providers Care Spinning Machine Operator Name Role Phone Venkat Solis MD Primary Care Provider [phone] Encounter Details Date Type Department Care Team (Late st Contact Info) Description 01/26/2002 Outpatient Historical [facility] Anthony Geronimo MD NO ADDRESS ON FILE Er, Authorized P NO ADDRESS ON FILE SPRAIN OF ANKLE NOS (Primary Dx) Social History Tobacco Use Types Packs/Day Years Used Date Smoking Tobacco: Never Assessed Comments Unknown Sex and Gender Information Value Date Recorded Sex Assigned at Female 04/24/2023 11:11 PM CDT Legal Sex Female 2:50 AM RAIL WASHER Gender Identity Female 04/24/2023 11:11 PM CDT Sexual Orientation Straight 04/24/2023 11 :11 PM CDT documented as of this encounter Plan of Treatment Not on file documented as of this encounter Visit Diagnoses Diagnosis Sprain of ankle, unspecified site- Primary documented in this encounter Additional Health Concerns Infection Onset Date Last Indicated Resolved Time R/O COVID-19 02/19/2022 02/19/2022 02/19/2022 3:34 PM CDT R/O COVID-19 10/22/2022 10/22/2022 10/22/2022 5:43 PM RAIL WASHER R/O COVID-19 08/02/2023 08/02/2023 08/02/2023 4:03 AM RAIL WASHER R/O Respiratory 08/02/2023 08/02/202308/0208/02/2023 1 :49 AM RAIL WASHER R/O GI Pathogen 08/04/2023 08/04/2023 08/04/2023 7 :15 PM RAIL WASHER documented as of this encounter Care Teams Spinning Machine Operator Relationship Specialty [place] [address] [phone] PCP - General Family Practice 09/16/24 09/16/24 documented as of this encounter
--- OUTSIDE RECORDS SUMMARY | 2024-10-09 01:05 | XMS_ITS | Encounter Summary ---
Author Organization [facility] Address [address] [place] [address] Care Team Providers Care Tire Bagger Name Role Phone Venkat Solis MD Primary Care Provider [phone] Encounter Details Date Type Department Care Team (Late st Contact Info) Description 10/27/2007 Outpatient Historical HIS [facility] [place] [address] [facility] [place] [address] Social History Tobacco Use Types Packs/Day Years Used Date Smoking Tobacco: Never Assessed Comments Unknown Sex and Gender Information Value Date Recorded Sex Assigned at Female 04/24/2023 11:11 PM CDT Legal Sex Female 2:50 AM RATCHET SETTER Gender Identity Female 04/24/2023 11:11 PM CDT [...] R/O COVID-19 10/22/2022 10/22/2022 10/22/2022 5:43 PM RATCHET SETTER R/O COVID-19 08/02/2023 08/02/2023 08/02/2023 4:03 AM RATCHET SETTER R/O Respiratory 08/02/2023 08/02/2023 08/02/2023 1 :49 AM RATCHET SETTER R/O GI Pathogen 08/04/2023 08/04/2023 08/04/2023 7 :15 PM RATCHET SETTER documented as of this encounter Care Teams Tire Bagger Relationship Specialty [place] [address] [address] PCP - General Family Practice 09/16/24 09/16/24 documented as of this encounter
[2024-10-09 07:00] VITALS: BP 117/79; PULSE 92; RESP 18; O2SAT 100
--- NOTE | 2024-10-09 07:32 | ED.DENTAL ---
HPI - Dental/Oral General Chief complaint: Dental/Oral Stated complaint: dental infection Time Seen by Provider: 10/09/24 07:08 Source: patient Mode of arrival: ambulatory Limitations: no limitations History of Present Illness HPI Narrative: Widespread dental pain, was seen by her dentist few times in the past, supposed to follow-up with oral surgeon. Been having pain for a while, she denies any fever, chills, nausea, vomiting, trouble swallowing or breathing or headache. Related Data Allergies Allergy/AdvReac Type Severity Reaction Status Date / Time tramadol Allergy Verified 03/31/13 21:35 KETOROLAC TROMETHAMINE Allergy Itching Uncoded 03/31/13 21:35 Review of Systems Review of Systems: All systems reviewed & are unremarkable except as noted in HPI and below Exam Narrative: General appearance: Well-developed, well-nourished Skin: Normal color Head: Normocephalic, nontraumatic Eyes: Clear conjunctiva ENT: Oropharynx normal, ears normal, nose normal, widespread dental caries Neck: Supple, nontender Chest and respiratory: Airway patent, no respiratory distress, no accessory muscle use Heart: Regular rate/rhythm Abdomen: Soft, nontender, no organomegaly, quiet bowel sounds Musculoskeletal: Normal range of motion, nontender back Neurologic: Alert and oriented ?3, POWER TRUCK DRIVER is normal as tested, no gross motor deficit Course Vital Signs Vital signs: Vital Signs Temperature 36.6 C 10/09/24 01:03 Pulse Rate 100 10/09/24 01:03 Respiratory Rate 16 10/09/24 01:03 Blood Pressure 109/72 10/09/24 01:03 Pulse Oximetry 97 10/09/24 01:03 Oxygen Delivery Room Air 10/09/24 01:03 Temperature 36.6 C 10/09/24 01:03 Pulse Rate 92 10/09/24 07:00 Respiratory Rate 18 10/09/24 07:00 Blood Pressure 117/79 10/09/24 07:00 Pulse Oximetry 100 10/09/24 07:00 Oxygen Delivery Room Air 10/09/24 01:03 Critical Care Time Critical Care Time Critical Care Time: No Discharge Plan Discharge Clinical Impression: Dental caries Patient Disposition: Home, Self-Care Condition: Stable Instructions: Antibiotic Form, Toothache (ED) Additional Instructions: Follow-up with your dentist as soon as possible Take ibuprofen plus antacid as needed for pain Patient Language: Albanian Prescriptions: New clindamycin HCl 300 mg capsule 300 mg PO Q6H Qty: 40 0RF Follow-up/Referrals: PHYSICIAN,CLINIC SUPERVISOR [Primary Care Provider] - Stand Alone Forms: Work/School Release IP
[2024-10-09] MEDS: HYDROcodone/acetaminophen (*CRX) 5-325 MG TABLET 1 TAB PO (07:37)
--- OUTSIDE RECORDS SUMMARY | 2024-10-09 07:46 | XMS_ITS | Encounter Summary ---
Author Organization [facility] Address [address] [place] [address] Care Team Providers Care Coffin Maker Name Role Phone Venkat Solis MD Primary Care Provider Reason for Visit * Reason Onset Date Comments Paperwork 05/18/2024 Alana amado Encounter Details Date Type Department Care Team (Late st Contact Info) Description 05/18/2024 Telephone [facility] [place] [address] [address] [facility] [address] [place] [address] [place] [address] [place] [facility] [address] [place] [address] Paperwork ([employer] Arredondo Form) Social History Tobacco Use Types [...] PM CDT Legal Sex Female 2:50 AM MACHINE SHORTHAND REPORTER Gender Identity Female 04/24/2023 11:11 PM CDT [...] on filedocumented in this encounter Care Teams Coffin Maker Relationship Specialty [place] [address] [phone] PCP - General Family Practice 09/16/24 09/16/24 documented as of this encounter
--- OUTSIDE RECORDS SUMMARY | 2024-10-09 07:49 | XMS_ITS | Encounter Summary ---
Author Organization [facility] Address [address] [facility] [place] [address] Care Team Providers Care Journeyman Pressman Name Role Phone Venkat Solis MD Primary Care Provider [phone] Encounter Details Date Type Department Care Team (Late st Contact Info) Description 01/06/2009 Outpatient Historical HIS [facility] [place] [address] [place] [address] Social History Tobacco Use Types Packs/Day Years Used Date Smoking Tobacco: Never Assessed Comments Unknown Sex and Gender Information Value Date Recorded Sex Assigned at Female 04/24/2023 11:11 PM CDT Legal Sex Female 2:50 AM COLON AND RECTAL SURGEON Gender Identity Female 04/24/2023 11:11 PM CDT [...] CDT Narrative 01/07/2009 8:01 AM CDT ? [facility] ? [address] ?[place], [place] [address] ?Admit Date: 01/06/2009 ?TERRAZAS, DANAY M ?Sex: F ?Admit Prov: MAJIDI, BEHRAD ? Date: 1980 ?Primary Care Prov: PCP, UNKNOWN ?CMRN: [id number] ?Room: UCCP-A ? SSN: [id number] ? IMAGING SERVICES ?Ordering Prov: N/A ? Accession Number: [id number] ?Interpretation ? PA AND LATERAL CHEST X-RAY, [...] Procedure Note Colleen Killian MD - 01/07/[address] [address] Admit Date: 01/06/2009 NINI December Sex: F Admit Prov: DARRICK BAEZ Date: 1980 Primary Care Prov: PCP, UNKNOWN CMRN: [id number] Room: [facility] SSN: [id number] IMAGING SERVICES Ordering Prov: N/A Interpretation PA [...] R/O COVID-19 10/22/2022 10/22/2022 10/22/2022 5:43 PM COLON AND RECTAL SURGEON R/O COVID-19 08/02/2023 08/02/2023 08/02/2023 4:03 AM COLON AND RECTAL SURGEON R/O Respiratory 08/02/2023 08/02/2023 08/02/2023 1 :49 AM COLON AND RECTAL SURGEON R/O GI Pathogen 08/04/2023 08/04/2023 08/04/2023 7 :15 PM COLON AND RECTAL SURGEON documented as of this encounter Care Teams Journeyman Pressman Relationship Specialty [place] [address] [phone] PCP - General Family Practice 09/16/24 09/16/24 documented as of this encounter
--- OUTSIDE RECORDS SUMMARY | 2024-10-09 07:49 | XMS_ITS | Encounter Summary ---
Author Organization [facility] Address [address] [place] [address] Care Team Providers Care Booking Prizer Name Role Phone Venkat Solis MD Primary Care Provider [phone] Encounter Details Date Type Department Care Team (Late st Contact Info) Description 05/29/2008 Outpatient Historical [facility] Er, Authorized P NO ADDRESS ON FILE Evan Chen [place] [facility] [place] [address] Unspecified Dental Caries; Unspecified Disease of the Jaws; Other Acute Pain Social History Tobacco Use Types Packs/Day Years Used Date Smoking Tobacco: Never Assessed Comments Unknown Sex and Gender Information Value Date Recorded Sex Assigned at Female 04/24/2023 11:11 PM CDT Legal Sex Female 2:50 AM FIRE FIGHTERS DISPATCHER Gender Identity Female 04/24/2023 11:11 PM CDT [...] R/O COVID-19 10/22/2022 10/22/2022 10/22/2022 5:43 PM FIRE FIGHTERS DISPATCHER R/O COVID-19 08/02/2023 08/02/2023 08/02/2023 4:03 AM FIRE FIGHTERS DISPATCHER R/O Respiratory 08/02/2023 08/02/2023 08/02/2023 1 :49 AM FIRE FIGHTERS DISPATCHER R/O GI Pathogen 08/04/2023 08/04/2023 08/04/2023 7 :15 PM FIRE FIGHTERS DISPATCHER documented as of this encounter Care Teams Booking Prizer Relationship Specialty [place] [address] [address] PCP - General Family Practice 09/16/24 09/16/24 documented as of this encounter
--- OUTSIDE RECORDS SUMMARY | 2024-10-09 07:49 | XMS_ITS | Encounter Summary ---
Author Organization [facility] Address [address] [place] [address] Care Team Providers Care Correspondence Coordinator Name Role Phone Venkat Solis MD Primary Care Provider [phone] Encounter Details Date Type Department Care Team (Late st Contact Info) Description 10/27/2007 Outpatient Historical HIS [facility] [place] [address] [place] [address] Social History Tobacco Use Types Packs/Day Years Used Date Smoking Tobacco: Never Assessed Comments Unknown Sex and Gender Information Value Date Recorded Sex Assigned at Female 04/24/2023 11:11 PM CDT Legal Sex Female 2:50 AM STORE ADMINISTRATOR Gender Identity Female 04/24/2023 11:11 PM CDT [...] R/O COVID-19 10/22/2022 10/22/2022 10/22/2022 5:43 PM STORE ADMINISTRATOR R/O COVID-19 08/02/2023 08/02/2023 08/02/2023 4:03 AM STORE ADMINISTRATOR R/O Respiratory 08/02/2023 08/02/2023 08/02/2023 1 :49 AM STORE ADMINISTRATOR R/O GI Pathogen 08/04/2023 08/04/2023 08/04/2023 7 :15 PM STORE ADMINISTRATOR documented as of this encounter Care Teams Correspondence Coordinator Relationship Specialty [place] [address] [phone] PCP - General Family Practice 09/16/24 09/16/24 documented as of this encounter
--- OUTSIDE RECORDS SUMMARY | 2024-10-09 07:50 | XMS_ITS | Encounter Summary ---
Author Organization [facility] Address [address] [place] [address] Care Team Providers Care Refrigerating Oiler Name Role Phone Venkat Solis MD Primary Care Provider [phone] Encounter Details Date Type Department Care Team (Late st Contact Info) Description 05/22/2007 Outpatient Historical [facility] Pancho Anglin MD [address] [place] [address] Emergency Department [place], [place] [id number] Er, Authorized P NO ADDRESS ON FILE Periapical Abscess without Sinus (Primary Dx) Social History Tobacco Use Types Packs/Day Years Used Date Smoking Tobacco: Never Assessed Comments Unknown Sex and Gender Information Value Date Recorded Sex Assigned at Female 04/24/2023 11:11 PM CDT Legal Sex Female 2:50 AM MULE PACKER Gender Identity Female 04/24/2023 11:11 PM CDT [...] R/O COVID-19 10/22/2022 10/22/2022 10/22/2022 5:43 PM MULE PACKER R/O COVID-19 08/02/2023 08/02/202308/0208/02/2023 4:03 AM MULE PACKER R/O Respiratory 08/02/2023 08/02/2023 08/02/2023 1 :49 AM MULE PACKER R/O GI Pathogen 08/04/2023 08/04/2023 08/04/2023 7 :15 PM MULE PACKER documented as of this encounter Care Teams Refrigerating Oiler Relationship Specialty [place] [address] [address] PCP - General Family Practice 09/16/24 09/16/24 documented as of this encounter
--- OUTSIDE RECORDS SUMMARY | 2024-10-09 07:50 | XMS_ITS | Encounter Summary ---
Author Organization [facility] Address [address] [place] [address] Care Team Providers Care Education Trainer Name Role Phone Venkat Solis MD Primary Care Provider [phone] Encounter Details Date Type Department Care Team (Late st Contact Info) Description 05/18/2007 Outpatient Historical [facility] Evan Chen MD [facility] [place], [place] [id number] Er, Authorized P NO ADDRESS ON FILE Broken Tooth-Uncomplic (Primary Dx) Social History Tobacco Use Types Packs/Day Years Used Date Smoking Tobacco: Never Assessed Comments Unknown Sex and Gender Information Value Date Recorded Sex Assigned at Female 04/24/2023 11:11 PM CDT Legal Sex Female 2:50 AM SENIOR POWER PLANT OPERATOR Gender Identity Female 04/24/2023 11:11 PM CDT [...] R/O COVID-19 10/22/2022 10/22/2022 10/22/2022 5:43 PM SENIOR POWER PLANT OPERATOR R/O COVID-19 08/02/2023 08/02/2023 08/02/2023 4:03 AM SENIOR POWER PLANT OPERATOR R/O Respiratory 08/02/2023 08/02/2023 08/02/2023 1 :49 AM SENIOR POWER PLANT OPERATOR R/O GI Pathogen 08/04/2023 08/04/2023 08/04/2023 7 :15 PM SENIOR POWER PLANT OPERATOR documented as of this encounter Care Teams Education Trainer Relationship Specialty [place] [address] [phone] PCP - General Family Practice 09/16/24 09/16/24 documented as of this encounter
--- OUTSIDE RECORDS SUMMARY | 2024-10-09 07:50 | XMS_ITS | Encounter Summary ---
Author Organization [facility] Address [address] [place] [address] Care Team Providers Care Director Life Sciences Name Role Phone Venkat Solis MD Primary Care Provider [phone] Encounter Details Date Type Department Care Team (Late st Contact Info) Description 10/12/2007 Outpatient Historical [facility] Er, Authorized P NO ADDRESS ON FILE Livan Gates, [address] [place] [address] Social History Tobacco Use Types Packs/Day Years Used Date Smoking Tobacco: Never Assessed Comments Unknown Sex and Gender Information Value Date Recorded Sex Assigned at Female 04/24/2023 11:11 PM CDT Legal Sex Female 2:50 AM ENVIRONMENTAL SERVICES WORKER Gender Identity Female 04/24/2023 11:11 PM CDT [...] R/O COVID-19 10/22/2022 10/22/2022 10/22/2022 5:43 PM ENVIRONMENTAL SERVICES WORKER R/O COVID-19 08/02/2023 08/02/2023 08/02/2023 4:03 AM ENVIRONMENTAL SERVICES WORKER R/O Respiratory 08/02/2023 08/02/2023 08/02/2023 1 :49 AM ENVIRONMENTAL SERVICES WORKER R/O GI Pathogen 08/04/2023 08/04/2023 08/04/2023 7 :15 PM ENVIRONMENTAL SERVICES WORKER documented as of this encounter Care Teams Director Life Sciences Relationship Specialty [place] [address] [phone] PCP - General Family Practice 09/16/24 09/16/24 documented as of this encounter
--- OUTSIDE RECORDS SUMMARY | 2024-10-09 07:50 | XMS_ITS | Encounter Summary ---
Author Organization [facility] Address [address] [place] [address] Care Team Providers Care Mobile Home Installer Name Role Phone Venkat Solis MD Primary Care Provider [phone] Encounter Details Date Type Department Care Team (Late st Contact Info) Description 08/05/2007 Outpatient Historical [facility] Livan Gates, DO [address] [place] [address] Er, Authorized P NO ADDRESS ON FILE Bronchitis, not Specified as Acute or Chronic (Primary Dx) Social History Tobacco Use Types Packs/Day Years Used Date Smoking Tobacco: Never Assessed Comments Unknown Sex and Gender Information Value Date Recorded Sex Assigned at Female 04/24/2023 11:11 PM CDT Legal Sex Female 2:50 AM PIER RUNNER Gender Identity Female 04/24/2023 11:11 PM CDT [...] R/O COVID-19 10/22/2022 10/22/2022 10/22/2022 5:43 PM PIER RUNNER R/O COVID-19 08/02/2023 08/02/2023 08/02/2023 4:03 AM PIER RUNNER R/O Respiratory 08/02/2023 08/02/2023 08/02/2023 1 :49 AM PIER RUNNER R/O GI Pathogen 08/04/2023 08/04/2023 08/04/2023 7 :15 PM PIER RUNNER documented as of this encounter Care Teams Mobile Home Installer Relationship Specialty [place] [address] [address] PCP - General Family Practice 09/16/24 09/16/24 documented as of this encounter
--- OUTSIDE RECORDS SUMMARY | 2024-10-09 07:51 | XMS_ITS | Clinical Summary ---
Author Organization [facility] Address [address] [place] [address] [place] [address] Phone Care Team Providers Care Blister Packaging Machine Operator Name Role Phone Unavailable Primary Care Provider [...] who read the CT scan in the [facility] system felt that the mass [...] who read the CT scan in the [facility] system felt that the mass [...] bleed in the past. Prescription for #12 [place] tablets were sent to her pharmacy today [...] bleed in the past. Prescription for #12 [place] tablets were sent to her pharmacy today [...] Date Type Department Care Team Description 09/30/2024 [facility] Clinical Support [address] [address] Coni Asher, AMRITA Question 09/21/2024 2:55 PM HEADING AND PRIMING TOOL SETTER - 09/21/2024 5:51 PM [facility] Emergency Department [id number] [place] [address] Pain of left hip (Primary Dx) Discharge Disposition: Home or Self Care 09/17/2024 [facility] [address] [facility] [address] [place] [address] Eliud Mai II, DO Paperwork (MDSS-Medical Referral of Restricted Participant(09-16-24) ) 09/08/2024 [facility] [address] [facility] [address] [place] [address] Eliud Mai II, DO Illness 09/06/2024 2:02 PM HEADING AND PRIMING TOOL SETTER - 09/06/2024 2:32 PM [facility] Emergency Department [address] [place] [phone] Other chronic pain (Primary Dx); Drug-seeking behavior Discharge Disposition: Home or Self Care 08/27/2024 [facility] [address] [address] [facility] [address] [place] [address] Eliud Mai II, DO Paperwork ([place] [employer] of White Metal Corrosion Proofer for Medical Referral of Restricted Participant) 08/26/2024 5:49 AM HEADING AND PRIMING TOOL SETTER - 08/26/2024 6:42 AM [facility] Emergency Department [address] [place] [address] Lorelei Samano MD Chronic bilateral low back pain with bilateral sciatica (Primary Dx) Discharge Disposition: Home or Self Care 08/26/2024 Travel 08/19/2024 8:39 AM HEADING AND PRIMING TOOL SETTER - 08/19/2024 9:36 AM [facility] Emergency Department [address] [place] [phone] Discharge Disposition: Left without being seen 08/19/2024 4:42 AM HEADING AND PRIMING TOOL SETTER - 08/19/2024 7:37 AM [facility] Emergency Department [address] [place] [phone] Pancho Nunes MD Lumbar pain (Primary Dx); Pain, dental Discharge Disposition: Home or Self Care 08/14/2024 12:07 AM HEADING AND PRIMING TOOL SETTER - 08/14/2024 2:01 AM [facility] Emergency Department [address] [place] [address] Loi Almaguer DO Strain of neck muscle, initial encounter (Primary Dx); Lumbar radiculopathy Discharge Disposition: Home or Self Care 08/13/2024 Travel 08/11/2024 External Device Data [facility] ABSTRACTION Provider, Abstract 07/28/2024 6:48 PM HEADING AND PRIMING TOOL SETTER - 07/28/2024 8:16 PM [facility] Emergency Department [address] [place] [address] Renaldo Chapman MD Anxiety state (Primary Dx) Discharge Disposition: Home or Self Care 07/28/2024 External Device Data STL ABSTRACTION Provider, Abstract 07/28/2024 Telephone [facility] Medicine [place] [facility] [address] [facility] [address] [place] [address] Eliud Mai II, DO Paperwork (Medical Referral of Restricted Participant) 07/26/2024 9:27 PM HEADING AND PRIMING TOOL SETTER - 07/26/2024 11:21 PM [facility] Emergency Department [address] [place] [address] Sonia Rod MD Chronic dental pain (Primary Dx); Gingivitis; Dental caries Discharge Disposition: Home or Self Care 07/25/2024 6:11 AM HEADING AND PRIMING TOOL SETTER - 07/25/2024 6:49 AM [facility] Emergency Department [address] [place] [address] Kirit Agustin MD Anxiety (Primary Dx) Discharge Disposition: Home or Self Care 07/25/2024 3:14 AM HEADING AND PRIMING TOOL SETTER - 07/25/2024 3:45 AM [facility] Emergency Department [address] [place] [address] Williams Angel DO Malingering (Primary Dx) Discharge Disposition: Home or Self Care 07/25/2024 12:34 AM HEADING AND PRIMING TOOL SETTER - 07/25/2024 1:07 AM [facility] Emergency Department [address] [place] [address] Williams Angel DO Chronic low back pain, unspecified back pain laterality, unspecified whether sciatica present (Primary Dx) Discharge Disposition: Home or Self Care 07/22/2024 6:41 PM HEADING AND PRIMING TOOL SETTER - 07/22/2024 7:54 PM [facility] Emergency Department [address] [place] [address] Chronic dental pain (Primary Dx) [...] PM CDT Legal Sex Female 2:50 AM HEADING AND PRIMING TOOL SETTER Gender Identity Female 04/24/2023 11:11 PM CDT Sexual Orientation Straight 04/24/2023 11 :11 PM CDT Occupation Industry Job Start Date Job End Date Not on file Not on file Not on file Not on file Last Filed Vital Signs Vital Sign Reading Time Taken Comments Blood Pressure 100/74 09/21/2024 3:50 PM HEADING AND PRIMING TOOL SETTER Pulse 98 09/21/2024 3:50 PM HEADING AND PRIMING TOOL SETTER Temperature 36.7 ??C (98 ??F) 09/21/2024 3:50 PM HEADING AND PRIMING TOOL SETTER Respiratory Rate 16 09/21/2024 3:50 PM HEADING AND PRIMING TOOL SETTER Oxygen Saturation 98% 09/21/2024 3:50 PM HEADING AND PRIMING TOOL SETTER Inhaled Oxygen Concentration - - Weight 62.1 kg (137 lb) 08/26/2024 2:15 AM HEADING AND PRIMING TOOL SETTER Height 170.2 cm (5' 7 ) 08/26/2024 2:15 AM HEADING AND PRIMING TOOL SETTER Body Mass Index 21.46 08/26/2024 2:15 AM HEADING AND PRIMING TOOL SETTER Plan of Treatment Health Maintenance Due Date [...] this topic Medical Devices Implanted Type Area Asset Protection Lead Device Identifier Shelf Expiration Date Model / Serial / Lot Clip Natalia Hinson [id number] - Csc - [id number] Implanted:Qty: 1 on 01/03/2024 by Mirella Tom MD at [facility] Clip N/A: Abdomen TELEFLEX- WECK CLOSURE SYS 08/11/2028 [id number] / / [id number] Procedures Procedure Name Priority Date/Time Associated Diagnosis Comments XR HIP 2 OR 3 VIEWS LT Stat 09/21/2024 1:25 PM HEADING AND PRIMING TOOL SETTER XR LUMBAR SPINE 2 OR 3 VW Stat 08/19/2024 4:48 AM HEADING AND PRIMING TOOL SETTER from Last 3 Months Results * XR HIP 2 OR 3 VIEWS LT (09/21/2024 1:25 PM HEADING AND PRIMING TOOL SETTER) Anatomical Region Laterality Modality Lower Extremity Left Computed Radiogr aphy 09/21/2024 1:25 PM HEADING AND PRIMING TOOL SETTER Impressions 09/21/2024 1:29 PM HEADING AND PRIMING TOOL SETTER IMPRESSION: 1. No osseous abnormality. DICTATION LOCATION: [address] Narrative 09/21/2024 1:29 PM HEADING AND PRIMING TOOL SETTER XR HIP 2 OR 3 VIEWS LT [...] IMPRESSION: 1. No osseous abnormality. DICTATION LOCATION: [address] us Protocol [facility] MD DIAGNOSTIC IMAGING OR DERABLES Final Result * XR LUMBAR SPINE 2 OR 3 VW (08/19/2024 4:48 AM HEADING AND PRIMING TOOL SETTER) Anatomical Region Laterality Modality Spine Computed Radiogr aphy 08/19/2024 4:49 AM HEADING AND PRIMING TOOL SETTER Impressions 08/19/2024 7:29 AM HEADING AND PRIMING TOOL SETTER IMPRESSION: 1. No acute fracture identified. DICTATION LOCATION: [address] Narrative 08/19/2024 7:29 AM HEADING AND PRIMING TOOL SETTER EXAMINATION: XR LUMBAR SPINE 2 OR 3 [...] No acute fracture identified. DICTATION LOCATION: Location [address] [place] [address] Pancho Nunes MD DIAGNOSTIC IMAGING ORDERABLE S Final Result from Last [address] [address] [place] [address] RX INFOCROSSING Medicaid RX KING PLANS (INTERNAL) [facility] RX K[employer] PLANS (INTERNAL) [facility] RX [employer] Express [place] Member Subscriber Plan / Payer (Ef fective 2021-Present) Name:Danay Ann Relation to Subscriber:Self Name:Danay Ann Payer ID:Not on file Group ID:Not on file Type:Medicaid Address: [address] [facility] [place] [id number] Advance Directives For more information, please contact: [phone] * Full Code (Latest Code Status on File) Date Activated Date Inactivated Comments 01/03/2024 2:11 PM 01/03/2024 5:26 PM * Full Code Date Activated Date Inactivated Comments 08/04/2023 11:17 AM 08/05/2023 1:38 PM * Full Code Date Activated Date Inactivated Comments 08/18/2018 8:17 AM 08/19/2018 4:23 PM
--- OUTSIDE RECORDS SUMMARY | 2024-10-09 07:51 | XMS_ITS | Encounter Summary ---
Author Organization [facility] Address [address] [place] [address] Care Team Providers Care Innovation Analyst Name Role Phone Venkat Solis MD Primary Care Provider [phone] Reason for Visit * Reason Onset Date Comments Paperwork 08/27/2024 [facility] Soc[facility] l Services for Medical Referral of Restricted Participant Encounter Details Date Type Department Care Team (Late st Contact Info) Description 08/27/2024 Telephone [facility] [address] [address] [employer] [facility] [address] [place] [address] [place] [address] [place] [address] Paperwork ([place] Dept of Cullet Crusher for Medical Referral of Restricted Participant) Social [...] PM CDT Legal Sex Female 2:50 AM PAYROLL AND BENEFITS ASSISTANT Gender Identity Female 04/24/2023 11:11 PM [...] a copy placed in Dr Mai's folder OLL AND BENEFITS ASSISTANT documented in this encounter Plan of Treatment Not on file documented as of this encounter Visit Diagnoses Not on filedocumented in this encounter Care Teams Innovation Analyst Relationship Specialty [place] [address] [address] PCP - General Family Practice 09/16/24 09/16/24 documented as of this encounter
--- OUTSIDE RECORDS SUMMARY | 2024-10-09 07:51 | XMS_ITS | Continuity of Care Document ---
Author Organization [facility] Address [address] [place] [address] Phone Care Team Providers Care Mixing House Operator Name Role Phone Diana Godfrey Unavailable Unavailable Allergies, Adverse Reactions, Alerts Substance Reaction Status Criticality watermelon Active No Information Medications Medication Instructions Dosage Effective Dates (start - stop) Status Comments furosemide 20 mg tablet take 1 tablet by oral route every day 20 MG - Active loratadine 10 mg tablet take 1 tablet by oral route every day 10 MG - Active ProAir HFA 90 mcg/actuation aerosol inhaler inhale 2 puff by inhalation route every 4 - 6 hours as needed - Active fluoxetine 40 mg capsule take 1 capsule by oral route every day in the morning 40 MG - Active omeprazole 20 mg tablet,delayed release take 1 Tablet by Oral route once 1 Tablet - Active lamotrigine 100 mg tablet take 1 tablet by oral route 2 times every day - Active trazodone 50 mg tablet take 3 tablet by oral route every evening 150 MG - Active Suboxone 2 mg-0.[address] 1 film by sublingual route 4 times every day allow to dissolve slowly in mouth without chewing or swallowing 1 film - Active ibuprofen 200 mg tablet take 1-2 tablet by oral route every 4-6 hours as needed with food - Active diphenhydramine 25 mg capsule take 1 - 2 Capsule by oral route every 4-6 hrs as needed - Active Procedures Procedure Date OFFICE/OUTPATIENT VISIT, NEW Advance Directives Directive Yes / No Effective Date File Name No Information Encounters Encounter Description Practice Location Reason(s) For Visit Diagnoses Date Provider Providers Copied on Encounter [facility], [address] [place] [address], [address], [place] tel:[phone] *[facility] No Information [address] [place], [address], [place]. tel:[phone] OFFICE/OUTPAT IENT VISIT, [facility], [address] [place], [address], tel:[phone] *[facility] swelling (chief complaint) asthma (chief complaint) Body mass index (BMI) 26.0-26.9, adultDietary counseling and surveillancePedal edemaNon-seasonal allergic rhinitis due to other allergic triggerMild intermittent asthma without complication [address] [place], [address], [place]. tel:[phone] Family History Family Member Type Diagnosis Age At Onset Mother Problem (finding) hypertension Payers Payer name Insurance type Covered constitution party ID Authoriza tion(s) No Information Social History [...] year. decrease portion size, decrease carbohydrates. download Eye [employer] to [employer] phone and log foods. start by decreasing [...]
--- OUTSIDE RECORDS SUMMARY | 2024-10-09 07:51 | XMS_ITS | Continuity of Care Document ---
Author Organization [facility] Address [address] [place] [address] Phone Care Team Providers Care Manager Club Name Role Phone Unavailable Unavailable Unavailable Medications [...] Diagnoses Date Provider Providers Copied on Encounter [email or web address] [facility] , [address], [place], [place], [id number], [place] tel:[phone] [facility] [place] No Information 3 No Information [facility] , [address], [place], [place], [id number], tel:[phone] [facility] No Information 0 No Information Family History Family Member Type Diagnosis Age At Onset No Information Payers Payer name Insurance type Covered alliance party ID Authordorindaa tibob(s) D Medicaid - Dental CI [id number] Social History Type Description Quantity Date Captured [...]
== END 2024-10-09 07:43 | disposition home or self-care (01) ==
LOC: ANHED 07:43
PROVIDERS: Emergency Provider Emergency Medicine
DX: K02.9 Dental caries, unspecified (principal)
CPT/HCPCS: 99283; A9270